=== PATIENT | male | born 1955 | race African-American/Black ===

== ENCOUNTER 2018-08-03 12:09 | Emergency (ER) | payer SELFPAY ==
[~2018-08-03] VITALS: Ht 175.3 cm; Wt 77.7 kg
[2018-08-03] MEDS ORDERED: MULTIVITAMIN 1 TABLET PO STA (12:46)
[2018-08-03] MEDS ORDERED: THIAMINE 100MG TABLET PO ONE (13:00)
--- NOTE | 2018-08-03 13:15 | NUR ---
Pt to room from lobby.
[2018-08-03 13:29] LABS: MEAN CORPUSCULAR HEMOGLOBIN 31.6 pg (27.5-34.5); MEAN CORPUSCULAR HGB CONC 33.6 g/dL (33.2-36.2); PLATELET COUNT 187 x10^3/uL (130-400); RED BLOOD COUNT 4.54 x10^6/uL (4.38-5.82); RED CELL DISTRIBUTION WIDTH 13.3 % (9.4-14.8)
[2018-08-03 13:46] LABS: ALANINE AMINOTRANSFERASE 164 U/L (12-78); ALBUMIN 3.8 g/dL (3.4-5.0); ANION GAP 12 mmol/L (5-15); CHLORIDE 109 mmol/L (98-107); CREATININE 0.77 mg/dL (0.7-1.3)
[2018-08-03 13:48] LABS: ALKALINE PHOSPHATASE 85 U/L (45-117); BILIRUBIN,TOTAL 0.9 mg/dL (0.2-1.0); TOTAL PROTEIN 8.4 g/dL (6.4-8.2)
[2018-08-03 13:56] LABS: BASOPHILS # (AUTO) 0.03 x10^3/uL (0-0.1); BASOPHILS % (AUTO) 1 % (0-1); EOSINOPHILS # (AUTO) 0.06 x10^3/uL (0-0.4); EOSINOPHILS % (AUTO) 1 % (1-7); LYMPHOCYTES # (AUTO) 3.64 x10^3/uL (1-3.4); LYMPHOCYTES % (AUTO) 56 % (22-44); MD SCAN; MONOCYTES # (AUTO) 0.51 x10^3/uL (0.2-0.8); MONOCYTES % (AUTO) 8 % (2-9); NEUTROPHILS # (AUTO) 2.24 x10^3/uL (1.8-6.8); NEUTROPHILS % (AUTO) 35 % (42-75)
--- NOTE | 2018-08-03 14:00 | NUR ---
THIS IS A 63 YO MALE WHO PRESENTS TO THE ER C/O DRY COUGH X "MONTHS" AND RUQ ABD PAIN X A "FEW WEEKS". PT TENDER TO PALP. PT DENIES N/V/D. PT AO X 4. SKIN WARM AND DRY. RESP EVEN ADN EQAUL. NAD NOTED. PT LAUGHING AND CHATTING PLEASANTLY WITH RN. PT ADMITS TO DRINKING 1/5TH OF HARD LIQOUR A DAY. PT ON CONT BP AND O2 MONITORS. WILL CONT TO MONITOR PT.
[2018-08-03 14:05] VITALS: BP 129/90
[2018-08-03 14:26] LABS: MICROSCOPIC NOT IND
[2018-08-03] MEDS ORDERED: THIAMINE 100MG TABLET ONE (14:27)
[2018-08-03] MEDS ORDERED: MAALOX/HYOSCYAMINE/LIDOCAINE 45 ML BTL ONE (14:27)
[2018-08-03] MEDS ORDERED: MAALOX/HYOSCYAMINE/LIDOCAINE 45 ML BTL PO ONE (14:30)
[2018-08-03 14:31] LABS: CULTURE INDICATED? NO
== END 2018-08-03 14:47 | disposition home or self-care (01) ==
LOC: ED 14:35
DX: K29.20 Alcoholic gastritis without bleeding (principal)
CPT/HCPCS: 36415; 71046; 80053; 81003; 83690; 85025; 99284